=== PATIENT | male | born 1960 | race African-American/Black ===

== ENCOUNTER 2016-10-26 12:09 | Inpatient (IN) | payer OTHER ==
[2016-10-26 13:44] VITALS: BMI 33.4
[2016-10-26] MEDS ORDERED: PNEUMOC 13-VAL CONJ-DIP CRM/PF 0.5 ML DISP.SYRIN IM ONE (14:14)
--- NOTE | 2016-10-26 16:14 | HP ---
COWS - Scale Resting Pulse: 0= [place] 80 or Below Sweatin= Chills/Flushing Restless Observation: 0= Sits Still Pupil Size: 2= Moderately Dilated Bone or Joint Aches: 4=Acute Joint/Muscle Pain Runny Nose/ Eye Tearin= None GI Upset > 30mins: 1= Stomach Cramp Tremor Observation: 1= Tremor [place], Not Seen Yawning Observation: 1= 1-2x During Session Anxiety or Irritability: 2=Irritable/Anxious Goose Flesh Skin: 0=Smooth Skin COWS Score: 12 CIWA Score - CIWA Score Nausea/Vomitin-No Nausea/No Vomiting Muscle Tremors: 4-Moderate,w/Arms Extend Anxiety: 4-Mod. Anxious/Guarded Agitation: 4-Moderately Restless Paroxysmal Sweats: 1-Minimal Palms Moist Orientation: 0-Oriented Tacttile Disturbances: 3-Moderate Itch/Numb/Burn Auditory Disturbances: 0-None Visual Disturbances: 0-None Headache: 0-None Present CIWA-Ar Total Score: 16 Admission ROS S - HPI Chief Complaint: DETOX TX FOR HEROIN DEPENDENCE Allergies/Adverse Reactions: Allergies Allergy/AdvReac Type Severity Reaction Status Date / Time No Known Allergies Allergy Verified 10/26/16 13:57 History of Present Illness: 56 Y/O AA/MALE WITH A HX OF HEROIN DEPENDENCE SEEKING DETOX TX. Exam Limitations: No Limitations - Ebola screening Have you traveled outside of the country in the last 21 days: No Have you had contact with anyone from an Ebola affected area: No Have you been sick,other than usual withdrawal symptoms: No Do you have a fever: No - Review of Systems Constitutional: Chills, Loss of Appetite, Night Sweats, Changes in sleep EENT: reports: Blurred Vision, Tearing, Nose Congestion, Dental Problems ( MISSING TEETH) Respiratory: reports: No Symptoms reported Cardiac: reports: Lightheadedness GI: reports: Constipated, Diarrhea, Nausea, Poor Appetite, Poor Fluid Intake, Vomiting : reports: Dysuria Musculoskeletal: reports: Back Pain, Joint Pain, Muscle Pain Integumentary: reports: No Symptoms Reported Neuro: reports: Headache, Dizziness Endocrine: reports: No Symptoms Reported Hematology: reports: No Symptoms Reported Psychiatric: reports: Orientated x3 Other Systems: Reviewed and Negative Patient History - Patient Medical History Hx Anemia: No Hx Asthma: No Hx Chronic Obstructive Pulmonary Disease (COPD): No Hx Cardiac Disorders: No Hx Hypertension: Yes (ON/OFF- NO MED) Hx Hypercholesterolemia: Yes (ON/OFF-) HX Cerebrovascular Accident: No Hx Seizures: No Hx Diabetes: No Hx Gastrointestinal Disorders: Yes (ON/OFF PPIs-RANITIDINE) Hx Genitourinary Disorders: No Hx Sexually Transmitted Disorders: No (DENIES) Hx Renal Disease (ESRD): No Hx Thyroid Disease: No Hx Human Immunodeficiency Virus (HIV): No (NEGATIVE HX) Hx Hepatitis C: No Hx Depression: Yes (NEVER BEEN EVALUATED BUT WANT EVALUATION THIS ADMISSION.) Hx Suicide Attempt: No (DENIES) Hx Schizophrenia: No - Patient Surgical History Past Surgical History: No Hx Neurologic Surgery: No Hx Cataract Extraction: No Hx Cardiac Surgery: No Hx Lung Surgery: No Hx Breast Surgery: No Hx Breast Biopsy: No Hx Abdominal Surgery: No Hx Appendectomy: No Hx Cholecystectomy: No Hx Genitourinary Surgery: No Hx Orthopedic Surgery: No Anesthesia Reaction: No - PPD History Previous Implant?: Yes Documented Results: Negative w/o proof Implanted On Prior R Admission?: No PPD to be Administered?: Yes - Reproductive History Patient is a Female of Child Bearing Age (11 -55 yrs old): No (MALE) Patient : (N/A) - Smoking Cessation Smoking history: Current every day smoker Have you smoked in the past 12 months: Yes Aproximately how many cigarettes per day: 20 Hx Chewing Tobacco Use: No Initiated information on smoking cessation: Yes 'Breaking Loose' booklet given: 10/26/16 - Substance & Tx. History Hx Alcohol Use: Yes (COGNAC) Hx Substance Use: Yes (HEROIN) Substance Use Type: Alcohol, Heroin Hx Substance Use Treatment: Yes (LAST TX AT [facility] 3YRS AGO) - Substances Abused Heroin Route: Inhalation Frequency: Daily Amount used: 20 bags Age of first use: 17 Date of Last Use: 10/26/16 alcohol-cognac Route: Oral Frequency: 3-6 times per week Amount used: 1/2 pint Age of first use: 20 Date of Last Use: 10/25/16 Family Disease History - Family Disease History Family Disease History: Diabetes: Father (BLINDNESS DU TO DM-), Brother (AMPUTATION DUE TO DM), Other: Mother (ARTHRITIS) Admission Physical Exam [facility] - Vital Signs Vital Signs: Vital Signs - 24 hr 10/26/16 13:41 Temperature 97.3 F L Pulse Rate 76 Respiratory 18 Rate Blood Pressure 151/85 - Physical General Appearance: Yes: Moderate Distress, Irritable, Anxious HEENTM: Yes: EOMI, Normocephalic, KEV, Pharynx Normal Respiratory: Yes: Chest Non-Tender, Lungs Clear, Normal Breath Sounds, No Respiratory Distress Neck: Yes: Supple, Trachea in good position Breast: Yes: Breast Exam Deferred Cardiology: Yes: Regular Rhythm, Regular Rate, S1, S2 Abdominal: Yes: Normal Bowel Sounds, Non Tender, Soft Genitourinary: Yes: Other (N/) Musculoskeletal: Yes: full range of Motion, Gait Steady Extremities: Yes: Normal Range of Motion, Non-Tender, Swelling Neurological: Yes: instrumentation tech II-XII NML intact, Fully Oriented, Alert Integumentary: Yes: Dry, Warm Lymphatic: Yes: Within Normal Limits - Diagnostic (1) Opioid dependence with withdrawal Current Visit: Yes Status: Acute (2) Alcohol dependence with uncomplicated withdrawal Current Visit: Yes Status: Acute (3) Hypertension Current Visit: Yes Status: Chronic Qualifiers: Hypertension type: essential hypertension Qualified Code(s): I10 - Essential (primary) hypertension (4) Hypercholesterolemia Current Visit: Yes Status: Suspected (5) GERD (gastroesophageal reflux disease) Current Visit: Yes Status: Chronic Qualifiers: Esophagitis presence: without esophagitis Qualified Code(s): K21.9 - Gastro-esophageal reflux disease without esophagitis Cleared for Admission S - Detox or Rehab [facility] Level of Care: Medically Managed Detox Regimen/Protocol: Methadone S Breath Alcohol Content Breath Alcohol Content: 0 Urine Drug Screen - Results Drug Screen Negative: No Urine Drug Screen Results: OPI-Opiates
[2016-10-26] MEDS ORDERED: METHADONE HCL 10 MG TABLET (FOR DETOX USE ONLY) PO ONE ×2 (17:05→23:00)
[2016-10-26] MEDS ORDERED: NICOTINE POLACRILEX 2 MG GUM BC PRN (17:05)
[2016-10-26] MEDS ORDERED: MAGNESIUM HYDROX 2400MG/30ML ORAL SUSPENSION 30 ML CUP PO PRN (17:05)
[2016-10-26] MEDS ORDERED: IBUPROFEN 400 MG TABLET (FP) PO PRN (17:05)
[2016-10-26] MEDS ORDERED: diphenhydrAMINE HCL 50 MG CAPSULE PO PRN (17:05)
[2016-10-26] MEDS ORDERED: LOPERAMIDE HCL 2 MG CAPSULE PO PRN (17:05)
[2016-10-26] MEDS ORDERED: ACETAMINOPHEN 325 MG TABLET (FP) PO PRN (17:05)
[2016-10-26] MEDS ORDERED: guaiFENesin/D-METHORPHAN HB 10 ML UNIT-DOSE CUPS PO PRN (17:05)
[2016-10-26] MEDS ORDERED: P-EPHED 60MG/TRIPROLIDI 2.5MG TABLET PO PRN (17:05)
[2016-10-26] MEDS ORDERED: MAGNESIUM CITRATE 300 ML BOTTLE PO PRN (17:05)
[2016-10-26] MEDS ORDERED: MAG HYDROX/AL HYDROX/SIMETH 30 ML UNIT-DOSE CUP PO PRN (17:05)
[2016-10-26] MEDS ORDERED: MENTHOL/PHENOL 1 EACH UD MM PRN (17:05)
[2016-10-26] MEDS: chlordiazePOXIDE HCL 25 MG CAPSULE PO PRN (17:36)
[2016-10-26] MEDS: HYDROCHLOROTHIAZIDE 25 MG TABLET (FP) PO SCH (17:36)
[2016-10-26] MEDS: NICOTINE 21 MG/24 HOURS TOPICAL PATCH TD SCH (17:41)
--- NOTE | 2016-10-26 17:50 | CONSULT ---
[facility] Psychiatric Consult - Data Date of interview: 10/26/16 Admission source: [facility] Identifying data: First admission to [facility] for this 56 y/o AA male seeking detox treatment on for alcohol and heroin dependence.Patient is single, a father of two,domiciled,unemployed and supported on welfare. Substance Abuse History: Discussed with patient.Confirms [facility] report. Smoking Cessation. Smoking history: Current every day smoker. Have you smoked in the past 12 months: Yes. Aproximately how many cigarettes per day: 20. Hx Chewing Tobacco Use: No. Initiated information on smoking cessation: Yes. 'Breaking Loose' booklet given: 10/26/16. - Substance & Tx. History. Hx Alcohol Use: Yes (COGNAC). Hx Substance Use: Yes (HEROIN). Substance Use Type: Alcohol, Heroin. Hx Substance Use Treatment: Yes (LAST TX AT [facility] 3YRS AGO). - Substances Abused. Heroin. Route: Inhalation. Frequency: Daily. Amount used: 20 bags. Age of first use: 17. Date of Last Use: 10/26/16. alcohol- cognac. Route: Oral. Frequency: 3-6 times per week. Amount used: 1/2 pint. Age of first use: 20. Date of Last Use: 10/25/16 Medical History: GERD and Hypertension. Psychiatric History: Patient denies. Physical/Sexual Abuse/Trauma History: Patient denies. Additional Comment: Urine Drug Screen Results: OPI-Opiates.Noted. Mental Status Exam - Mental Status Exam Alert and Oriented to: Time, Place, Person Cognitive Function: Good Patient Appearance: Well Groomed Mood: Nervous, Anxious Affect: Mood Congruent Patient Behavior: Fatigued, Appropriate, Cooperative Speech Pattern: Clear Voice Loudness: Normal Thought Process: Goal Oriented Thought Disorder: Not Present Hallucinations: Denies Suicidal Ideation: Denies Homicidal Ideation: Denies Insight/Judgement: Poor Sleep: Well Appetite: Good Muscle strength/Tone: Normal Gait/Station: Normal Psychiatric Findings - Problem List ([place] 1, 2,3) (1) Alcohol dependence with uncomplicated withdrawal Current Visit: Yes Status: Acute (2) Opioid dependence with withdrawal Current Visit: Yes Status: Acute - Initial Treatment Plan Initial Treatment Plan: Psychoeducation.Detoxification.Observation.
[2016-10-26 21:05] LABS: URINE APPEARANCE CLEAR; URINE BILIRUBIN NEGATIVE (NEGATIVE); URINE BLOOD 1+ (NEGATIVE); URINE COLOR YELLOW; URINE GLUCOSE (UA) NEGATIVE (NEGATIVE); URINE KETONE NEGATIVE (NEGATIVE); URINE LEUK ESTERASE NEGATIVE (NEGATIVE); URINE NITRITE NEGATIVE (NEGATIVE); URINE PROTEIN NEGATIVE (NEGATIVE)
[2016-10-26 21:21] LABS: URINE HYALINE CAST 2 /lpf; URINE MUCUS MANY; URINE RBC 3 /hpf (0-3); URINE WBC 1 /hpf (3-5)
[2016-10-26] MEDS: chlordiazePOXIDE HCL 25 MG CAPSULE PO SCH (22:11)
[2016-10-26] MEDS: RANITIDINE HCL 150 MG TABLET (FP) PO SCH (22:11)
[2016-10-26] MEDS: THIAMINE HCL 100 MG TABLET (FP) PO SCH (22:11)
[2016-10-27] MEDS: chlordiazePOXIDE HCL 25 MG CAPSULE PO SCH ×4 (05:53→22:11)
[2016-10-27] MEDS ORDERED: METHADONE HCL 10 MG TABLET (FOR DETOX USE ONLY) PO SCH (10:00)
--- NOTE | 2016-10-27 10:04 | PN ---
[facility] CIWA - CIWA Score Nausea/Vomitin-No Nausea/No Vomiting Muscle Tremors: 4-Moderate,w/Arms Extend Anxiety: 4-Mod. Anxious/Guarded Agitation: 4-Moderately Restless Paroxysmal Sweats: 1-Minimal Palms Moist Orientation: 0-Oriented Tacttile Disturbances: 3-Moderate Itch/Numb/Burn Auditory Disturbances: 0-None Visual Disturbances: 0-None Headache: 0-None Present CIWA-Ar Total Score: 16 S COWS - Scale Resting Pulse: 0= [place] 80 or Below Sweatin= Chills/Flushing Restless Observation: 3= Extraneous Movement Pupil Size: 2= Moderately Dilated Bone or Joint Aches: 4=Acute Joint/Muscle Pain Runny Nose/ Eye Tearin= None GI Upset > 30mins: 0= None Tremor Observation of Outstretched Hands: 1= Tremor [place], Not Seen Yawning Observation: 1= 1-2x During Session Anxiety or Irritability: 1=Feels Anxious/Irritable Goose Flesh Skin: 0=Smooth Skin COWS Score: 13 [facility] Progress Note (SOAP) Subjective: ANXIETY,SWEATS,INTERMITTENT SLEEP. Objective: 10/27/16 10:02 Vital Signs Temperature 97.1 F L 10/27/16 09:27 Pulse Rate 76 10/27/16 09:27 Respiratory Rate 18 10/27/16 09:27 Blood Pressure 133/80 10/27/16 09:27 O2 Sat by Pulse Oximetry (%) Laboratory Last Values Urine Color Yellow 10/26/16 20:47 Urine Appearance Clear 10/26/16 20:47 Urine pH 5.0 (5.0-8.0) 10/26/16 20:47 Ur Specific [place] 1.020 (1.005-1.025) 10/26/16 20:47 Urine Protein Negative (NEGATIVE) 10/26/16 20:47 Urine Glucose (UA) Negative (NEGATIVE) 10/26/16 20:47 Urine Ketones Negative (NEGATIVE) 10/26/16 20:47 Urine Blood 1+ (NEGATIVE) H 10/26/16 20:47 Urine Nitrite Negative (NEGATIVE) 10/26/16 20:47 Urine Bilirubin Negative (NEGATIVE) 10/26/16 20:47 Urine Urobilinogen 2.0 mg/dL (0.2-1.0) 10/26/16 20:47 Ur Leukocyte Esterase Negative (NEGATIVE) 10/26/16 20:47 Urine RBC 3 /hpf (0-3) 10/26/16 20:47 Urine WBC 1 /hpf (3-5) 10/26/16 20:47 Ur Epithelial Cells Rare /hpf (FEW) 10/26/16 20:47 Hyaline Casts 2 /lpf 10/26/16 20:47 Urine Mucus Many 10/26/16 20:47 Assessment: 10/27/16 10:04 WITHDRAWAL SX Plan: CONTINUE DETOX
[2016-10-27] MEDS: HYDROCHLOROTHIAZIDE 25 MG TABLET (FP) PO SCH (10:05)
[2016-10-27] MEDS: RANITIDINE HCL 150 MG TABLET (FP) PO SCH ×2 (10:05→22:11)
[2016-10-27] MEDS: PRENATAL VITAMINS W/ FOLIC ACID TABLET (FP) PO SCH (10:05)
[2016-10-27] MEDS: NICOTINE 21 MG/24 HOURS TOPICAL PATCH TD SCH (10:06)
[2016-10-27 10:14] LABS: ALBUMIN 3.4 g/dl (3.4-5.0); ANION GAP 7 (8-16); CALCIUM 9.1 mg/dL (8.5-10.1); CO2 31 mmol/L (21-32); GLUCOSE,RANDOM 98 mg/dL (74-106)
[2016-10-27 10:15] LABS: MEAN CELL VOLUME 94.1 fl (80-96); MEAN PLT VOLUME 7.4 fl (7.5-11.1); PLATELET COUNT 356 K/MM3 (134-434); RDW 13.7 % (11.9-15.9); WHITE BLOOD COUNT 5.3 K/mm3 (4.0-10.0)
[2016-10-27 10:18] LABS: ALK PHOS 68 U/L (45-117); BILIRUBIN,TOTAL 0.8 mg/dL (0.2-1.0); CREATININE 1.2 mg/dL (0.7-1.3); SGOT/AST 9 U/L (15-37); SGPT/ALT 15 U/L (12-78); TOT PROT 6.5 g/dl (6.4-8.2)
[2016-10-27] MEDS ORDERED: PNEUMOCOCCAL 23 VACCINE 0.5 ML VIAL IM ONE (12:00)
[2016-10-27] MEDS: chlordiazePOXIDE HCL 25 MG CAPSULE PO PRN (15:19)
[2016-10-27] MEDS: THIAMINE HCL 100 MG TABLET (FP) PO SCH (22:11)
[2016-10-28] MEDS: chlordiazePOXIDE HCL 25 MG CAPSULE PO SCH ×3 (05:41→17:18)
[2016-10-28] MEDS ORDERED: CYCLOBENZAPRINE HCL 10 MG TABLET (FP) PO PRN (07:26)
[2016-10-28] MEDS: METHADONE HCL 5 MG TABLET (FOR DETOX USE ONLY) PO SCH (10:07)
[2016-10-28] MEDS: HYDROCHLOROTHIAZIDE 25 MG TABLET (FP) PO SCH (10:07)
[2016-10-28] MEDS: PRENATAL VITAMINS W/ FOLIC ACID TABLET (FP) PO SCH (10:07)
[2016-10-28] MEDS: RANITIDINE HCL 150 MG TABLET (FP) PO SCH ×2 (10:07→22:06)
[2016-10-28] MEDS: NICOTINE 21 MG/24 HOURS TOPICAL PATCH TD SCH (10:07)
--- NOTE | 2016-10-28 10:40 | PN ---
[facility] CIWA - CIWA Score Nausea/Vomitin-No Nausea/No Vomiting Muscle Tremors: 4-Moderate,w/Arms Extend Anxiety: 4-Mod. Anxious/Guarded Agitation: 4-Moderately Restless Paroxysmal Sweats: 1-Minimal Palms Moist Orientation: 0-Oriented Tacttile Disturbances: 3-Moderate Itch/Numb/Burn Auditory Disturbances: 0-None Visual Disturbances: 0-None Headache: 0-None Present CIWA-Ar Total Score: 16 [facility] COWS - Scale Resting Pulse: 1= [place] 81-100 Sweatin= Chills/Flushing Restless Observation: 3= Extraneous Movement Pupil Size: 0= Normal to Room Light Bone or Joint Aches: 4=Acute Joint/Muscle Pain Runny Nose/ Eye Tearin= Nasal Congestion GI Upset > 30mins: 1= Stomach Cramp Tremor Observation of Outstretched Hands: 1= Tremor [place], Not Seen Yawning Observation: 1= 1-2x During Session Anxiety or Irritability: 2=Irritable/Anxious Goose Flesh Skin: 0=Smooth Skin COWS Score: 15 [facility] Progress Note (SOAP) Subjective: ANXIETY,IRRITABILITY, SWEATS,BACK ACHE, HOT/COLD FLASHES, INTERMITTENT SLEEP. Objective: 10/28/16 10:39 Vital Signs Temperature 97.0 F L 10/28/16 10:10 Pulse Rate 94 H 10/28/16 10:10 Respiratory Rate 20 10/28/16 10:10 Blood Pressure 156/93 10/28/16 10:10 O2 Sat by Pulse Oximetry (%) Laboratory Last Values WBC 5.3 K/mm3 (4.0-10.0) 10/27/16 07:00 RBC 4.05 M/mm3 (4.00-5.60) 10/27/16 07:00 Hgb 12.6 GM/dL (11.7-16.9) 10/27/16 07:00 Hct 38.1 % (35.4-49) 10/27/16 07:00 MCV 94.1 fl (80-96) 10/27/16 07:00 MCH 31.0 pg (25.7-33.7) 10/27/16 07:00 MCHC 33.0 g/dl (32.0-35.9) 10/27/16 07:00 RDW 13.7 % (11.9-15.9) 10/27/16 07:00 Plt Count 356 K/MM3 (134-434) 10/27/16 07:00 MPV 7.4 fl (7.5-11.1) L 10/27/16 07:00 Sodium 139 mmol/L (136-145) 10/27/16 07:00 Potassium 4.4 mmol/L (3.5-5.1) 10/27/16 07:00 Chloride 101 mmol/L (98-107) 10/27/16 07:00 Carbon Dioxide 31 mmol/L (21-32) 10/27/16 07:00 Anion Gap 7 (8-16) L 10/27/16 07:00 BUN 12 mg/dL (7-18) 10/27/16 07:00 Creatinine 1.2 mg/dL (0.7-1.3) 10/27/16 07:00 Creat Clearance w eGFR > 60 (>60) 10/27/16 07:00 Random Glucose 98 mg/dL (74-106) 10/27/16 07:00 Calcium 9.1 mg/dL (8.5-10.1) 10/27/16 07:00 Total Bilirubin 0.8 mg/dL (0.2-1.0) 10/27/16 07:00 AST 9 U/L (15-37) L 10/27/16 07:00 ALT 15 U/L (12-78) 10/27/16 07:00 Alkaline Phosphatase 68 U/L (45-117) 10/27/16 07:00 Total Protein 6.5 g/dl (6.4-8.2) 10/27/16 07:00 Albumin 3.4 g/dl (3.4-5.0) 10/27/16 07:00 Urine Color Yellow 10/26/16 20:47 Urine Appearance Clear 10/26/16 20:47 Urine pH 5.0 (5.0-8.0) 10/26/16 20:47 Ur Specific [place] 1.020 (1.005-1.025) 10/26/16 20:47 Urine Protein Negative (NEGATIVE) 10/26/16 20:47 Urine Glucose (UA) Negative (NEGATIVE) 10/26/16 20:47 Urine Ketones Negative (NEGATIVE) 10/26/16 20:47 Urine Blood 1+ (NEGATIVE) H 10/26/16 20:47 Urine Nitrite Negative (NEGATIVE) 10/26/16 20:47 Urine Bilirubin Negative (NEGATIVE) 10/26/16 20:47 Urine Urobilinogen 2.0 mg/dL (0.2-1.0) 10/26/16 20:47 Ur Leukocyte Esterase Negative (NEGATIVE) 10/26/16 20:47 Urine RBC 3 /hpf (0-3) 10/26/16 20:47 Urine WBC 1 /hpf (3-5) 10/26/16 20:47 Ur Epithelial Cells Rare /hpf (FEW) 10/26/16 20:47 Hyaline Casts 2 /lpf 10/26/16 20:47 Urine Mucus Many 10/26/16 20:47 RPR Titer Nonreactive (NONREACTIVE) 10/27/16 07:00 Assessment: 10/28/16 10:40 WITHDRAWAL SX Plan: CONTINUE DETOX
[2016-10-28] MEDS: LIDOCAINE 5% TOPICAL PATCH TP SCH (12:20)
[2016-10-28] MEDS: CYCLOBENZAPRINE HCL 10 MG TABLET (FP) PO SCH ×2 (13:36→22:07)
[2016-10-28] MEDS: THIAMINE HCL 100 MG TABLET (FP) PO SCH (22:06)
[2016-10-28] MEDS: cloNIDine HCL 0.1 MG TABLET PO SCH (22:06)
[2016-10-28] MEDS: LIDOCAINE PATCH REMOVAL MC SCH (22:07)
[2016-10-28] MEDS: chlordiazePOXIDE 5 MG CAPSULE PO SCH (22:07)
[2016-10-29] MEDS: CYCLOBENZAPRINE HCL 10 MG TABLET (FP) PO SCH ×3 (05:57→22:05)
[2016-10-29] MEDS: chlordiazePOXIDE 5 MG CAPSULE PO SCH ×3 (05:58→17:07)
[2016-10-29] MEDS: RANITIDINE HCL 150 MG TABLET (FP) PO SCH ×2 (10:07→22:05)
[2016-10-29] MEDS: PRENATAL VITAMINS W/ FOLIC ACID TABLET (FP) PO SCH (10:07)
[2016-10-29] MEDS: METHADONE HCL 5 MG TABLET (FOR DETOX USE ONLY) PO SCH (10:07)
[2016-10-29] MEDS: cloNIDine HCL 0.1 MG TABLET PO SCH ×2 (10:07→22:05)
[2016-10-29] MEDS: HYDROCHLOROTHIAZIDE 25 MG TABLET (FP) PO SCH (10:07)
[2016-10-29] MEDS: NICOTINE 21 MG/24 HOURS TOPICAL PATCH TD SCH (10:08)
[2016-10-29] MEDS: LIDOCAINE 5% TOPICAL PATCH TP SCH (10:08)
--- NOTE | 2016-10-29 10:31 | PN ---
S Progress Note (SOAP) Subjective: DECREASED ANXIETY,IRRITABILITY,TREMORS. Objective: 10/29/16 10:30 Vital Signs Temperature 97.7 F 10/29/16 09:22 Pulse Rate 79 10/29/16 09:22 Respiratory Rate 18 10/29/16 09:22 Blood Pressure 115/77 10/29/16 09:22 O2 Sat by Pulse Oximetry (%) Laboratory Last Values WBC 5.3 K/mm3 (4.0-10.0) 10/27/16 07:00 RBC 4.05 M/mm3 (4.00-5.60) 10/27/16 07:00 Hgb 12.6 GM/dL (11.7-16.9) 10/27/16 07:00 Hct 38.1 % (35.4-49) 10/27/16 07:00 MCV 94.1 fl (80-96) 10/27/16 07:00 MCH 31.0 pg (25.7-33.7) 10/27/16 07:00 MCHC 33.0 g/dl (32.0-35.9) 10/27/16 07:00 RDW 13.7 % (11.9-15.9) 10/27/16 07:00 Plt Count 356 K/MM3 (134-434) 10/27/16 07:00 MPV 7.4 fl (7.5-11.1) L 10/27/16 07:00 Sodium 139 mmol/L (136-145) 10/27/16 07:00 Potassium 4.4 mmol/L (3.5-5.1) 10/27/16 07:00 Chloride 101 mmol/L (98-107) 10/27/16 07:00 Carbon Dioxide 31 mmol/L (21-32) 10/27/16 07:00 Anion Gap 7 (8-16) L 10/27/16 07:00 BUN 12 mg/dL (7-18) 10/27/16 07:00 Creatinine 1.2 mg/dL (0.7-1.3) 10/27/16 07:00 Creat Clearance w eGFR > 60 (>60) 10/27/16 07:00 Random Glucose 98 mg/dL (74-106) 10/27/16 07:00 Calcium 9.1 mg/dL (8.5-10.1) 10/27/16 07:00 Total Bilirubin 0.8 mg/dL (0.2-1.0) 10/27/16 07:00 AST 9 U/L (15-37) L 10/27/16 07:00 ALT 15 U/L (12-78) 10/27/16 07:00 Alkaline Phosphatase 68 U/L (45-117) 10/27/16 07:00 Total Protein 6.5 g/dl (6.4-8.2) 10/27/16 07:00 Albumin 3.4 g/dl (3.4-5.0) 10/27/16 07:00 Urine Color Yellow 10/26/16 20:47 Urine Appearance Clear 10/26/16 20:47 Urine pH 5.0 (5.0-8.0) 10/26/16 20:47 Ur Specific [place] 1.020 (1.005-1.025) 10/26/16 20:47 Urine Protein Negative (NEGATIVE) 10/26/16 20:47 Urine Glucose (UA) Negative (NEGATIVE) 10/26/16 20:47 Urine Ketones Negative (NEGATIVE) 10/26/16 20:47 Urine Blood 1+ (NEGATIVE) H 10/26/16 20:47 Urine Nitrite Negative (NEGATIVE) 10/26/16 20:47 Urine Bilirubin Negative (NEGATIVE) 10/26/16 20:47 Urine Urobilinogen 2.0 mg/dL (0.2-1.0) 10/26/16 20:47 Ur Leukocyte Esterase Negative (NEGATIVE) 10/26/16 20:47 Urine RBC 3 /hpf (0-3) 10/26/16 20:47 Urine WBC 1 /hpf (3-5) 10/26/16 20:47 Ur Epithelial Cells Rare /hpf (FEW) 10/26/16 20:47 Hyaline Casts 2 /lpf 10/26/16 20:47 Urine Mucus Many 10/26/16 20:47 RPR Titer Nonreactive (NONREACTIVE) 10/27/16 07:00 Assessment: 10/29/16 10:31 WITHDRAWAL SX Plan: CONTINUE DETOX
--- NOTE | 2016-10-29 11:38 | EKG ---
Test Reason : Blood Pressure : / mmHG Vent. Rate : 084 BPM Atrial Rate : 084 BPM P-R Int : 146 ms QRS Dur : 090 ms QT Int : 360 ms P-R-T Axes : 058 040 048 degrees QTc Int : 425 ms NORMAL SINUS RHYTHM POSSIBLE LEFT ATRIAL ENLARGEMENT BORDERLINE ECG NO PREVIOUS ECGS AVAILABLE Confirmed by IRASEMA PETTIT, KM ([id number]) on 10/29/2016 11:38:00 AM Referred By: Confirmed By:KM VILLALPANDO MD
[2016-10-29] MEDS ORDERED: PNEUMOCOCCAL 23 VACCINE 0.5 ML VIAL IM ONE (12:00)
[2016-10-29] MEDS ORDERED: PNEUMOC 13-VAL CONJ-DIP CRM/PF 0.5 ML DISP.SYRIN IM ONE (12:00)
[2016-10-29] MEDS: THIAMINE HCL 100 MG TABLET (FP) PO SCH (22:05)
[2016-10-29] MEDS: chlordiazePOXIDE HCL 10 MG CAPSULE PO SCH (22:05)
[2016-10-29] MEDS: LIDOCAINE PATCH REMOVAL MC SCH (22:06)
[2016-10-30] MEDS: CYCLOBENZAPRINE HCL 10 MG TABLET (FP) PO SCH ×3 (05:22→22:12)
[2016-10-30] MEDS: chlordiazePOXIDE HCL 10 MG CAPSULE PO SCH ×3 (05:22→17:28)
[2016-10-30] MEDS ORDERED: METHADONE HCL 10 MG TABLET (FOR DETOX USE ONLY) PO SCH (10:00)
[2016-10-30] MEDS: cloNIDine HCL 0.1 MG TABLET PO SCH ×2 (10:11→22:12)
[2016-10-30] MEDS: RANITIDINE HCL 150 MG TABLET (FP) PO SCH ×2 (10:11→22:12)
[2016-10-30] MEDS: HYDROCHLOROTHIAZIDE 25 MG TABLET (FP) PO SCH (10:11)
[2016-10-30] MEDS: LIDOCAINE 5% TOPICAL PATCH TP SCH (10:12)
[2016-10-30] MEDS: NICOTINE 21 MG/24 HOURS TOPICAL PATCH TD SCH (10:12)
[2016-10-30] MEDS: PRENATAL VITAMINS W/ FOLIC ACID TABLET (FP) PO SCH (10:12)
--- NOTE | 2016-10-30 10:31 | PN ---
S Progress Note (SOAP) Subjective: DECREASED ANXIETY,SWEATS,IRRITABILITY. Objective: 10/30/16 10:29 Vital Signs Temperature 96.7 F L 10/30/16 06:38 Pulse Rate 85 10/30/16 09:46 Respiratory Rate 18 10/30/16 09:46 Blood Pressure 108/69 10/30/16 09:46 O2 Sat by Pulse Oximetry (%) Laboratory Last Values WBC 5.3 K/mm3 (4.0-10.0) 10/27/16 07:00 RBC 4.05 M/mm3 (4.00-5.60) 10/27/16 07:00 Hgb 12.6 GM/dL (11.7-16.9) 10/27/16 07:00 Hct 38.1 % (35.4-49) 10/27/16 07:00 MCV 94.1 fl (80-96) 10/27/16 07:00 MCH 31.0 pg (25.7-33.7) 10/27/16 07:00 MCHC 33.0 g/dl (32.0-35.9) 10/27/16 07:00 RDW 13.7 % (11.9-15.9) 10/27/16 07:00 Plt Count 356 K/MM3 (134-434) 10/27/16 07:00 MPV 7.4 fl (7.5-11.1) L 10/27/16 07:00 Sodium 139 mmol/L (136-145) 10/27/16 07:00 Potassium 4.4 mmol/L (3.5-5.1) 10/27/16 07:00 Chloride 101 mmol/L (98-107) 10/27/16 07:00 Carbon Dioxide 31 mmol/L (21-32) 10/27/16 07:00 Anion Gap 7 (8-16) L 10/27/16 07:00 BUN 12 mg/dL (7-18) 10/27/16 07:00 Creatinine 1.2 mg/dL (0.7-1.3) 10/27/16 07:00 Creat Clearance w eGFR > 60 (>60) 10/27/16 07:00 Random Glucose 98 mg/dL (74-106) 10/27/16 07:00 Calcium 9.1 mg/dL (8.5-10.1) 10/27/16 07:00 Total Bilirubin 0.8 mg/dL (0.2-1.0) 10/27/16 07:00 AST 9 U/L (15-37) L 10/27/16 07:00 ALT 15 U/L (12-78) 10/27/16 07:00 Alkaline Phosphatase 68 U/L (45-117) 10/27/16 07:00 Total Protein 6.5 g/dl (6.4-8.2) 10/27/16 07:00 Albumin 3.4 g/dl (3.4-5.0) 10/27/16 07:00 Urine Color Yellow 10/26/16 20:47 Urine Appearance Clear 10/26/16 20:47 Urine pH 5.0 (5.0-8.0) 10/26/16 20:47 Ur Specific [place] 1.020 (1.005-1.025) 10/26/16 20:47 Urine Protein Negative (NEGATIVE) 10/26/16 20:47 Urine Glucose (UA) Negative (NEGATIVE) 10/26/16 20:47 Urine Ketones Negative (NEGATIVE) 10/26/16 20:47 Urine Blood 1+ (NEGATIVE) H 10/26/16 20:47 Urine Nitrite Negative (NEGATIVE) 10/26/16 20:47 Urine Bilirubin Negative (NEGATIVE) 10/26/16 20:47 Urine Urobilinogen 2.0 mg/dL (0.2-1.0) 10/26/16 20:47 Ur Leukocyte Esterase Negative (NEGATIVE) 10/26/16 20:47 Urine RBC 3 /hpf (0-3) 10/26/16 20:47 Urine WBC 1 /hpf (3-5) 10/26/16 20:47 Ur Epithelial Cells Rare /hpf (FEW) 10/26/16 20:47 Hyaline Casts 2 /lpf 10/26/16 20:47 Urine Mucus Many 10/26/16 20:47 RPR Titer Nonreactive (NONREACTIVE) 10/27/16 07:00 Assessment: 10/30/16 10:29 WITHDRAWAL SX Plan: CONTINUE DETOX
[2016-10-30] MEDS: LIDOCAINE PATCH REMOVAL MC SCH (22:12)
[2016-10-30] MEDS: THIAMINE HCL 100 MG TABLET (FP) PO SCH (22:12)
[2016-10-31] MEDS: CYCLOBENZAPRINE HCL 10 MG TABLET (FP) PO SCH (05:30)
[2016-10-31] MEDS ORDERED: METHADONE HCL 5 MG TABLET (FOR DETOX USE ONLY) PO SCH (06:00)
[2016-10-31] MEDS: cloNIDine HCL 0.1 MG TABLET PO SCH (10:15)
[2016-10-31] MEDS: HYDROCHLOROTHIAZIDE 25 MG TABLET (FP) PO SCH (10:15)
[2016-10-31] MEDS: RANITIDINE HCL 150 MG TABLET (FP) PO SCH (10:15)
[2016-10-31] MEDS: LIDOCAINE 5% TOPICAL PATCH TP SCH (10:16)
[2016-10-31] MEDS: PRENATAL VITAMINS W/ FOLIC ACID TABLET (FP) PO SCH (10:16)
[2016-10-31] MEDS: NICOTINE 21 MG/24 HOURS TOPICAL PATCH TD SCH (10:16)
[2016-10-31 10:43] VITALS: BP 121/81; PULSE 96; TEMP 96.9
--- NOTE | 2016-10-31 15:50 | HP ---
GURPREET PETTIT Rehab Assess/Revision - Admission History Admitted to Rehab from: [facility] - Vital signs Vital Signs: Vital Signs Period Temp Pulse Resp BP Sys/Iyer Pulse Ox Last 24 Hr 96.4 F-97.4 F 61-96 18-18 111-126/72-86 - Findings Detox History & Physical reviewed: Yes Concur with findings: Yes Comments/Additional Findings: PRIOR TO DISCHARGE FROM DETOX UNIT WITH SUBSEQUENT ADMISSION TO REHAB UNIT, PATIENT'S MEDICAL / MEDICATION HISTORY REVIEWED. PATIENT DISCHARGED FROM DETOX UNIT IN STABLE MEDICAL CONDITION.
--- NOTE | 2016-10-31 15:53 | DS ---
[facility] Detox Discharge Summary Admission Date: 10/26/16 Discharge Date: 10/31/16 - History Present History: Alcohol Dependence, Opioid Dependence Additional Comments: PATIENT GOING TO [facility]. PATIENT ADVISED TO FOLLOW-UP THERE PER DISCHARGE ARRANGEMENT. PATIENT DISCHARGED FROM DETOX UNIT IN STABLE MEDICAL CONDITION. Pertinent Past History: GERD, HTN, Hypercholesterolemia. - Physical Exam Results Vital Signs: Vital Signs Temperature 96.9 F L 10/31/16 10:43 Pulse Rate 96 H 10/31/16 10:43 Respiratory Rate 18 10/31/16 10:43 Blood Pressure 121/81 10/31/16 10:43 O2 Sat by Pulse Oximetry (%) Pertinent Admission Physical Exam Findings: WITHDRAWAL SYMPTOMS. Laboratory Tests 10/26/16 10/27/16 10/27/16 20:47 07:00 07:00 WBC 5.3 RBC 4.05 Hgb 12.6 Hct 38.1 MCV 94.1 MCH 31.0 MCHC 33.0 RDW 13.7 Plt Count 356 MPV 7.4 L Sodium 139 Potassium 4.4 Chloride 101 Carbon Dioxide 31 Anion Gap 7 L BUN 12 Creatinine 1.2 Creat Clearance w eGFR > 60 Random Glucose 98 Calcium 9.1 Total Bilirubin 0.8 AST 9 L ALT 15 Alkaline Phosphatase 68 Total Protein 6.5 Albumin 3.4 Urine Color Yellow Urine Appearance Clear Urine pH 5.0 Ur Specific [place] 1.020 Urine Protein Negative Urine Glucose (UA) Negative Urine Ketones Negative Urine Blood 1+ H Urine Nitrite Negative Urine Bilirubin Negative Urine Urobilinogen 2.0 Ur Leukocyte Esterase Negative Urine RBC 3 Urine WBC 1 Ur Epithelial Cells Rare Hyaline Casts 2 Urine Mucus Many RPR Titer 10/27/16 07:00 WBC RBC Hgb Hct MCV MCH MCHC RDW Plt Count MPV Sodium Potassium Chloride Carbon Dioxide Anion Gap BUN Creatinine Creat Clearance w eGFR Random Glucose Calcium Total Bilirubin AST ALT Alkaline Phosphatase Total Protein Albumin Urine Color Urine Appearance Urine pH Ur Specific [place] Urine Protein Urine Glucose (UA) Urine Ketones Urine Blood Urine Nitrite Urine Bilirubin Urine Urobilinogen Ur Leukocyte Esterase Urine RBC Urine WBC Ur Epithelial Cells Hyaline Casts Urine Mucus RPR Titer Nonreactive LABS NOTED. - Treatment Hospital Course: Detox Protocol Followed, Detoxed Safely, Responded well, Discharged Condition Good, Rehab Referral Accepted Patient [facility] - Medication Discharge Medications: Ambulatory Orders Ranitidine [Zantac -] 150 mg PO BID 10/26/16 - Diagnosis (1) Alcohol dependence with uncomplicated withdrawal Status: Acute (2) Opioid dependence with withdrawal Status: Acute (3) GERD (gastroesophageal reflux disease) Status: Chronic Qualifiers: Esophagitis presence: without esophagitis Qualified Code(s): K21.9 - Gastro-esophageal reflux disease without esophagitis (4) Hypertension Status: Chronic Qualifiers: Hypertension type: essential hypertension Qualified Code(s): I10 - Essential (primary) hypertension (5) Hypercholesterolemia Status: Suspected - AMA Did Patient Leave Against Medical Advice: No
== END 2016-10-31 12:54 | disposition other institution (70) | DRG 773 ==
LOC: YASAS 12:09 → Y3N 15:14
PROVIDERS: ADMIT Internal Medicine Addiction Medicine; ATTEND Internal Medicine Addiction Medicine
PROC: HZ2ZZZZ Detoxification Services for Substance Abuse Treatment (ICD-10-PCS; principal; 2016-10-26)
DX: F11.23 Opioid dependence with withdrawal (principal); F10.230 Alcohol dependence with withdrawal, uncomplicated; F17.210 Nicotine dependence, cigarettes, uncomplicated; K21.9 Gastro-esophageal reflux disease without esophagitis; I10 Essential (primary) hypertension; E78.00 Pure hypercholesterolemia, unspecified
CPT/HCPCS: 36415; 80053; 81003; 81015; 85027; 86593; 93005; 93010

== ENCOUNTER 2016-10-31 13:10 | Inpatient (IN) | payer OTHER ==
[2016-10-31] MEDS ORDERED: MENTHOL/PHENOL 1 EACH UD MM PRN (18:28)
[2016-10-31] MEDS ORDERED: guaiFENesin/D-METHORPHAN HB 10 ML UNIT-DOSE CUPS PO PRN (18:28)
[2016-10-31] MEDS ORDERED: IBUPROFEN 400 MG TABLET (FP) PO PRN (18:28)
[2016-10-31] MEDS ORDERED: diphenhydrAMINE HCL 50 MG CAPSULE PO PRN (18:28)
[2016-10-31] MEDS ORDERED: P-EPHED 60MG/TRIPROLIDI 2.5MG TABLET PO PRN (18:28)
[2016-10-31] MEDS ORDERED: MAGNESIUM HYDROX 2400MG/30ML ORAL SUSPENSION 30 ML CUP PO PRN (18:28)
[2016-10-31] MEDS ORDERED: MAG HYDROX/AL HYDROX/SIMETH 30 ML UNIT-DOSE CUP PO PRN (18:28)
[2016-10-31] MEDS ORDERED: ACETAMINOPHEN 325 MG TABLET (FP) PO PRN (18:28)
[2016-10-31] MEDS ORDERED: hydrOXYzine PAMOATE 50 MG CAPSULE (FP) PO PRN (18:28)
[2016-10-31] MEDS ORDERED: MAGNESIUM CITRATE 300 ML BOTTLE PO PRN (18:28)
[2016-10-31] MEDS ORDERED: NICOTINE POLACRILEX 2 MG GUM BUC PRN (18:28)
[2016-10-31] MEDS ORDERED: LOPERAMIDE HCL 2 MG CAPSULE PO PRN (18:28)
[2016-10-31] MEDS: RANITIDINE HCL 150 MG TABLET (FP) PO SCH (21:28)
[2016-10-31] MEDS ORDERED: THIAMINE HCL 100 MG TABLET (FP) PO SCH (22:00)
[2016-11-01 07:01] VITALS: BP 110/80; PULSE 64; TEMP 97.8
[2016-11-01] MEDS ORDERED: PRENATAL VITAMINS W/ FOLIC ACID TABLET (FP) PO SCH (10:00)
[2016-11-01] MEDS ORDERED: NICOTINE 14 MG/24 HOURS TOPICAL PATCH TD SCH (10:00)
[2016-11-01] MEDS: RANITIDINE HCL 150 MG TABLET (FP) PO SCH (10:28)
--- NOTE | 2016-11-01 13:18 | PN ---
[facility] Progress Note Note: was informed this am that patient sighed AMA
== END 2016-11-01 11:30 | disposition left against medical advice (07) | DRG 770 ==
LOC: YASAS 13:10 → Y5N 13:11
PROVIDERS: ADMIT Psychiatry & Neurology Psychiatry; ATTEND Psychiatry & Neurology Psychiatry
PROC: HZ42ZZZ Group Counseling for Substance Abuse Treatment, Cognitive-Behavioral (ICD-10-PCS; principal; 2016-10-31)
DX: F11.20 Opioid dependence, uncomplicated (principal); F10.20 Alcohol dependence, uncomplicated; F17.210 Nicotine dependence, cigarettes, uncomplicated; K21.9 Gastro-esophageal reflux disease without esophagitis; I10 Essential (primary) hypertension; E78.00 Pure hypercholesterolemia, unspecified

== ENCOUNTER 2019-02-02 10:12 | Inpatient (IN) | payer OTHER ==
[2019-02-02 10:50] VITALS: BMI 38.9
--- NOTE | 2019-02-02 11:49 | HP ---
"COWS - Scale Resting Pulse: 1= [place] 81-100 Sweatin= No chills or Flushing Restless Observation: 1= Difficult to Sit Still Pupil Size: 0= Normal to Room Light Bone or Joint Aches: 1= Mild Discomfort Runny Nose/ Eye Tearin= None GI Upset > 30mins: 2= Nausea/Diarrhea Tremor Observation: 0= None Yawning Observation: 0= None Anxiety or Irritability: 1=Feels Anxious/Irritable Goose Flesh Skin: 0=Smooth Skin COWS Score: 6 CIWA Score - Admission Criteria OASAS Guidelines: Admission for Medically Managed Detox: Requires at least one of the followin. CIWA greater than 12 2. Seizures within the past 24 hours 3. Delirium tremens within the past 24 hours 4. Hallucinations within the past 24 hours 5. Acute intervention needed for co occurring medical disorder 6. Acute intervention needed for co occurring psychiatric disorder 7. Severe withdrawal that cannot be handled at a lower level of care (continued vomiting, continued diarrhea, abnormal vital signs) requiring intravenous medication and/or fluids 8. Admitting History and Physical - Smoking History Smoking history: Current every day smoker Have you smoked in the past 12 months: Yes Aproximately how many cigarettes per day: 20 - Alcohol/Substance Use Hx Alcohol Use: Yes (COGNAC) Admission ROS [facility] Allergies/Adverse Reactions: Allergies Allergy/AdvReac Type Severity Reaction Status Date / Time No Known Allergies Allergy Verified 02/02/19 13:22 History of Present Illness: pt here requesting detox from opiate use , reports 10 bags /day via inhalation , denies IV use , latest use this morning , denies symptoms at this time . PMHX : DM, HTN , non- compliant w /meds , LLE swelling and open wound x 2 weeks states went to [facility] given ABx , unsure about wound care , states swelling persists denies SI / HI On exam LLE w/ posterior calf open wound w/ granulation , other superficial areas of weeping edema , Dajuan LE 3 + edema. Search Terms: bryon deal, 1960 Search Date: 02/02/2019 11:29:45 AM The Drug Utilization Report below displays all of the controlled substance prescriptions, if any, that your patient has filled in the last twelve months. The information displayed on this report is compiled from pharmacy submissions to the Department, and accurately reflects the information as submitted by the pharmacies. This report was requested by: Khadra Chadwick | Reference #: [id number] There are no results for the search terms that you entered. Exam Limitations: No Limitations - Ebola screening Have you traveled outside of the country in the last 21 days: No Have you had contact with anyone from an Ebola affected area: No Do you have a fever: No - Review of Systems Constitutional: No Symptoms Reported EENT: reports: No Symptoms Reported Respiratory: reports: No Symptoms reported Cardiac: reports: No Symptoms Reported Integumentary: reports: See HPI, Other (left leg wound) Endocrine: reports: See HPI Psychiatric: reports: Orientated x3 Patient History - Patient Medical History Hx Anemia: No Hx Asthma: No Hx Chronic Obstructive Pulmonary Disease (COPD): No Hx Cardiac Disorders: No Hx Hypercholesterolemia: Yes (ON/OFF-) HX Cerebrovascular Accident: No Hx Seizures: No Hx Gastrointestinal Disorders: No Hx Genitourinary Disorders: No Hx Sexually Transmitted Disorders: No Hx Renal Disease (ESRD): No Hx Thyroid Disease: No Hx Human Immunodeficiency Virus (HIV): No (NEGATIVE HX) Hx Hepatitis C: No Hx Depression: Yes Hx Suicide Attempt: No Hx Schizophrenia: No - Patient Surgical History Past Surgical History: No Hx Neurologic Surgery: No Hx Cataract Extraction: No Hx Cardiac Surgery: No Hx Lung Surgery: No Hx Breast Surgery: No Hx Breast Biopsy: No Hx Abdominal Surgery: No Hx Appendectomy: No Hx Cholecystectomy: No Hx Genitourinary Surgery: No Hx Section: (N/A) Hx Orthopedic Surgery: No Anesthesia Reaction: No - PPD History Date: 10/28/16 Results: 0mm - Smoking Cessation Smoking history: Current every day smoker Have you smoked in the past 12 months: Yes Aproximately how many cigarettes per day: 20 Cigars Per Day: 0 Hx Chewing Tobacco Use: No Initiated information on smoking cessation: Yes 'Breaking Loose' booklet given: 02/02/19 - Substances abused Heroin Substance route: Inhalation Frequency: Daily Amount used: 2 BUNDLES Age of first use: 17 Date of last use: 02/02/19 Alcohol Substance route: Oral Frequency: 1-3 times last 30 days Amount used: 2 SHOTS OF NITA 01/26/2019 Age of first use: 23 Date of last use: 01/26/19 Admission Physical Exam BHS - Vital Signs Vital Signs: Vital Signs - 24 hr 02/02/19 10:46 Temperature 97.2 F L Pulse Rate 89 Respiratory 18 Rate Blood Pressure 124/83 Breathalyzer - Breathalyzer Breathalyzer: 0 Urine Drug Screen - Test Device Lot number: [id number] Expiration date: 09/28/20 - Control Is test valid?: Yes - Results Drug screen NEGATIVE: No Urine drug screen results: THEE-Cocaine, MOP-Opiates, OXY-Oxycodone Inpatient Rehab Admission - Rehab Decision to Admit Inpatient rehab admission?: No"
[2019-02-02] MEDS ORDERED: MAGNESIUM CITRATE 300 ML BOTTLE PO PRN (16:40)
[2019-02-02] MEDS ORDERED: METHOCARBAMOL 500 MG TABLET PO PRN (16:40)
[2019-02-02] MEDS ORDERED: MENTHOL/PHENOL 1 EACH UD MM PRN (16:40)
[2019-02-02] MEDS ORDERED: MAGNESIUM HYDROX 2400MG/30ML ORAL SUSPENSION 30 ML CUP PO PRN (16:40)
[2019-02-02] MEDS ORDERED: ACETAMINOPHEN 325 MG TABLET (FP) PO PRN ×2 (16:40)
[2019-02-02] MEDS ORDERED: BISMUTH SUBSALICYLATE 524 MG/30 ML UD PO PRN (16:40)
[2019-02-02] MEDS ORDERED: MAG HYDROX/AL HYDROX/SIMETH 30 ML UNIT-DOSE CUP PO PRN (16:40)
[2019-02-02] MEDS ORDERED: hydrOXYzine PAMOATE 25 MG CAPSULE (FP) PO PRN (16:40)
[2019-02-02] MEDS ORDERED: cloNIDine HCL 0.1 MG TABLET PO PRN (17:19)
[2019-02-02] MEDS ORDERED: METHADONE HCL 10 MG TABLET (FOR DETOX USE ONLY) PO ONE (21:00)
[2019-02-02] MEDS: IBUPROFEN 400 MG TABLET (FP) PO PRN (21:25)
[2019-02-02] MEDS: THIAMINE HCL 100 MG TABLET (FP) PO SCH (21:26)
[2019-02-02] MEDS: MELATONIN 5 MG TABLETS PO PRN (21:27)
[2019-02-03] MEDS: BACITRACIN/POLYMYXIN B SULFATE 15 GM TUBE TP SCH ×3 (00:06→22:10)
[2019-02-03] MEDS: metFORMIN HCL 500 MG TABLET (FP) PO SCH ×2 (06:06→17:33)
[2019-02-03] MEDS: INSULIN SLIDING SCALE (NOVOLOG) 1 VIAL SQ SCH ×2 (06:08→16:36)
[2019-02-03] MEDS ORDERED: METHADONE HCL 5 MG TABLET (FOR DETOX USE ONLY) PO ONE (10:00)
[2019-02-03] MEDS ORDERED: HYDROCORTISONE 2.5% TOPICAL CREAM 30 GM TUBE TP SCH (10:00)
[2019-02-03 10:09] LABS: HEMATOCRIT 35.7 % (35.4-49); HEMOGLOBIN 11.7 GM/dL (11.7-16.9); MCHC 32.8 g/dl (32.0-35.9); MEAN CELL VOLUME 91.4 fl (80-96); MEAN PLT VOLUME 7.3 fl (7.5-11.1); PLATELET COUNT 390 K/MM3 (134-434); RBC 3.91 M/mm3 (4.00-5.60); RDW 14.8 % (11.9-15.9); WHITE BLOOD COUNT 5.3 K/mm3 (4.0-10.0)
[2019-02-03] MEDS: PRENATAL VITAMINS W/ FOLIC ACID TABLET (FP) PO SCH (10:20)
[2019-02-03 10:24] LABS: ALBUMIN 3.3 g/dl (3.4-5.0); BILIRUBIN,TOTAL 0.6 mg/dL (0.2-1); BLOOD UREA NITROGEN 12.4 mg/dL (7-18); CALCIUM 9.1 mg/dL (8.5-10.1); CREATININE 1.3 mg/dL (0.55-1.3); POTASSIUM 4.4 mmol/L (3.5-5.1); TOT PROT 6.8 g/dl (6.4-8.2)
--- NOTE | 2019-02-03 11:33 | EKG ---
Test Reason : Blood Pressure : / mmHG Vent. Rate : 076 BPM Atrial Rate : 076 BPM P-R Int : 144 ms QRS Dur : 090 ms QT Int : 396 ms P-R-T Axes : 030 045 048 degrees QTc Int : 445 ms NORMAL SINUS RHYTHM NONSPECIFIC T WAVE ABNORMALITY WHEN COMPARED WITH ECG OF 26-OCT-2016 16:42, NO SIGNIFICANT CHANGE WAS FOUND Confirmed by ZAMZAM SEXTON MD ([id number]) on 02/03/2019 11:33:38 AM Referred By: TAVO Confirmed By:ZAMZAM SEXTON MD
[2019-02-03] MEDS: CLINDAMYCIN HCL 600 MG PO SCH ×6 (12:29→22:10)
[2019-02-03] MEDS: CIPROFLOXACIN HCL 500 MG PO SCH ×3 (12:30→22:10)
[2019-02-03] MEDS: IBUPROFEN 400 MG TABLET (FP) PO PRN (12:31)
--- NOTE | 2019-02-03 14:36 | PN ---
S COWS - Scale Resting Pulse: 0= [place] 80 or Below Sweatin= Chills/Flushing Restless Observation: 1= Difficult to Sit Still Pupil Size: 0= Normal to Room Light Bone or Joint Aches: 2= Severe Diffuse Aches Runny Nose/ Eye Tearin= Runny Nose/Eyes GI Upset > 30mins: 0= None Tremor Observation of Outstretched Hands: 1= Tremor [place], Not Seen Yawning Observation: 2= >3x During Session Anxiety or Irritability: 2=Irritable/Anxious Goose Flesh Skin: 0=Smooth Skin COWS Score: 11 S Progress Note (SOAP) Subjective: c/o body aches, chills, sweats , interrupted sleep Objective: 02/03/19 14:30 Vital Signs Temperature 97.0 F L 02/03/19 09:23 Pulse Rate 77 02/03/19 13:47 Respiratory Rate 18 02/03/19 13:47 Blood Pressure 149/100 02/03/19 13:47 O2 Sat by Pulse Oximetry (%) Laboratory Last Values WBC 5.3 K/mm3 (4.0-10.0) 02/03/19 07:45 RBC 3.91 M/mm3 (4.00-5.60) L 02/03/19 07:45 Hgb 11.7 GM/dL (11.7-16.9) 02/03/19 07:45 Hct 35.7 % (35.4-49) 02/03/19 07:45 MCV 91.4 fl (80-96) 02/03/19 07:45 MCH 30.0 pg (25.7-33.7) 02/03/19 07:45 MCHC 32.8 g/dl (32.0-35.9) 02/03/19 07:45 RDW 14.8 % (11.9-15.9) 02/03/19 07:45 Plt Count 390 K/MM3 (134-434) 02/03/19 07:45 MPV 7.3 fl (7.5-11.1) L 02/03/19 07:45 Sodium 140 mmol/L (136-145) 02/03/19 07:45 Potassium 4.4 mmol/L (3.5-5.1) 02/03/19 07:45 Chloride 107 mmol/L (98-107) 02/03/19 07:45 Carbon Dioxide 28 mmol/L (21-32) 02/03/19 07:45 Anion Gap 5 MMOL/L (8-16) L 02/03/19 07:45 BUN 12.4 mg/dL (7-18) 02/03/19 07:45 Creatinine 1.3 mg/dL (0.55-1.3) 02/03/19 07:45 Est GFR (CKD-EPI)AfAm 70.69 02/03/19 07:45 Est GFR (CKD-EPI)NonAf 60.99 02/03/19 07:45 POC Glucometer 95 UNITS (80-120) 02/03/19 06:05 Random Glucose 117 mg/dL (74-106) H 02/03/19 07:45 Calcium 9.1 mg/dL (8.5-10.1) 02/03/19 07:45 Total Bilirubin 0.6 mg/dL (0.2-1) 02/03/19 07:45 AST 10 U/L (15-37) L 02/03/19 07:45 ALT 19 U/L (13-61) 02/03/19 07:45 Alkaline Phosphatase 84 U/L (45-117) 02/03/19 07:45 Total Protein 6.8 g/dl (6.4-8.2) 02/03/19 07:45 Albumin 3.3 g/dl (3.4-5.0) L 02/03/19 07:45 RPR Titer Nonreactive (NONREACTIVE) 02/03/19 07:45 Assessment: 02/03/19 14:33 Aox3 no acute distress lungs clear + LLE superficial wound no sign of cellulites and no drainage + bilateral no pitting edema bilateral lower extremities full ROM ambulating in the unit withdrawal sx Diabetic wound left medical calf Plan: continue detox patient was evaluated at the Ed prior to admission for diabetic wound LLE, continue wound orders continue to monitor
[2019-02-03] MEDS: THIAMINE HCL 100 MG TABLET (FP) PO SCH (22:10)
[2019-02-03] MEDS: MELATONIN 5 MG TABLETS PO PRN (22:11)
[2019-02-04] MEDS: metFORMIN HCL 500 MG TABLET (FP) PO SCH ×2 (07:05→17:48)
[2019-02-04] MEDS: INSULIN SLIDING SCALE (NOVOLOG) 1 VIAL SQ SCH ×2 (07:06→17:49)
[2019-02-04] MEDS ORDERED: METHADONE HCL 10 MG TABLET (FOR DETOX USE ONLY) PO ONE (10:00)
[2019-02-04] MEDS: CIPROFLOXACIN HCL 500 MG PO SCH ×2 (10:05→22:32)
[2019-02-04] MEDS: CLINDAMYCIN HCL 600 MG PO SCH ×4 (10:05→22:32)
[2019-02-04] MEDS: BACITRACIN/POLYMYXIN B SULFATE 15 GM TUBE TP SCH ×2 (10:07→23:32)
[2019-02-04] MEDS: PRENATAL VITAMINS W/ FOLIC ACID TABLET (FP) PO SCH (10:07)
--- NOTE | 2019-02-04 12:57 | PN ---
BHS COWS - Scale Resting Pulse: 0= [place] 80 or Below Sweatin= Beads of Sweat on Face Restless Observation: 1= Difficult to Sit Still Pupil Size: 0= Normal to Room Light Bone or Joint Aches: 2= Severe Diffuse Aches Runny Nose/ Eye Tearin= None GI Upset > 30mins: 0= None Tremor Observation of Outstretched Hands: 0= None Yawning Observation: 1= 1-2x During Session Anxiety or Irritability: 2=Irritable/Anxious Goose Flesh Skin: 0=Smooth Skin COWS Score: 9 S Progress Note (SOAP) Subjective: c/o sweats, anxiety, muscle aches, and irritability. Objective: 02/04/19 12:57 Vital Signs 02/04/19 02/04/19 06:54 09:26 Temperature 99 F 99 F Pulse Rate 69 86 Respiratory 18 18 Rate Blood Pressure 125/76 153/95 Laboratory Last Values WBC 5.3 K/mm3 (4.0-10.0) 02/03/19 07:45 RBC 3.91 M/mm3 (4.00-5.60) L 02/03/19 07:45 Hgb 11.7 GM/dL (11.7-16.9) 02/03/19 07:45 Hct 35.7 % (35.4-49) 02/03/19 07:45 MCV 91.4 fl (80-96) 02/03/19 07:45 MCH 30.0 pg (25.7-33.7) 02/03/19 07:45 MCHC 32.8 g/dl (32.0-35.9) 02/03/19 07:45 RDW 14.8 % (11.9-15.9) 02/03/19 07:45 Plt Count 390 K/MM3 (134-434) 02/03/19 07:45 MPV 7.3 fl (7.5-11.1) L 02/03/19 07:45 Sodium 140 mmol/L (136-145) 02/03/19 07:45 Potassium 4.4 mmol/L (3.5-5.1) 02/03/19 07:45 Chloride 107 mmol/L (98-107) 02/03/19 07:45 Carbon Dioxide 28 mmol/L (21-32) 02/03/19 07:45 Anion Gap 5 MMOL/L (8-16) L 02/03/19 07:45 BUN 12.4 mg/dL (7-18) 02/03/19 07:45 Creatinine 1.3 mg/dL (0.55-1.3) 02/03/19 07:45 Est GFR (CKD-EPI)AfAm 70.69 02/03/19 07:45 Est GFR (CKD-EPI)NonAf 60.99 02/03/19 07:45 POC Glucometer 119 UNITS (80-120) 02/04/19 05:41 Random Glucose 117 mg/dL (74-106) H 02/03/19 07:45 Calcium 9.1 mg/dL (8.5-10.1) 02/03/19 07:45 Total Bilirubin 0.6 mg/dL (0.2-1) 02/03/19 07:45 AST 10 U/L (15-37) L 02/03/19 07:45 ALT 19 U/L (13-61) 02/03/19 07:45 Alkaline Phosphatase 84 U/L (45-117) 02/03/19 07:45 Total Protein 6.8 g/dl (6.4-8.2) 02/03/19 07:45 Albumin 3.3 g/dl (3.4-5.0) L 02/03/19 07:45 RPR Titer Nonreactive (NONREACTIVE) 02/03/19 07:45 Labs noted. Assessment: 02/04/19 12:57 AOX3, in no acute respiratory distress. Full ROM, ambulating in the unit. Withdrawal symptoms. Plan: continue detox.
[2019-02-04] MEDS: THIAMINE HCL 100 MG TABLET (FP) PO SCH (22:32)
[2019-02-04] MEDS: MELATONIN 5 MG TABLETS PO PRN (22:33)
[2019-02-05] MEDS ORDERED: METHADONE HCL 5 MG TABLET (FOR DETOX USE ONLY) PO ONE (06:00)
[2019-02-05] MEDS: INSULIN SLIDING SCALE (NOVOLOG) 1 VIAL SQ SCH (07:57)
[2019-02-05] MEDS: metFORMIN HCL 500 MG TABLET (FP) PO SCH (07:57)
[2019-02-05 09:16] VITALS: BP 144/97; PULSE 87; TEMP 98.3
[2019-02-05] MEDS: PRENATAL VITAMINS W/ FOLIC ACID TABLET (FP) PO SCH (09:41)
[2019-02-05] MEDS: CLINDAMYCIN HCL 600 MG PO SCH (09:41)
[2019-02-05] MEDS: BACITRACIN/POLYMYXIN B SULFATE 15 GM TUBE TP SCH (09:41)
[2019-02-05] MEDS: CIPROFLOXACIN HCL 500 MG PO SCH (09:41)
--- NOTE | 2019-02-05 12:12 | DS ---
[facility] Detox Discharge Summary Admission Date: 02/02/19 Discharge Date: 02/05/19 - History Present History: Opioid Dependence Additional Comments: 58 years old male admitted on 02/02/19 for opiate withdrawal sx management treated with methadone detox regimen requests to be discharged today that feeling better today prefers to be discharged today that he will return to [facility] admission patient is alert oriented x 3 cardiac s1s2 regular rate rhythm respiratory clear lung bilaterally on auscultation skin warm and dry Pertinent Past History: discuss medication assisted treatment program and olive picker narcan from pharmacy - Physical Exam Results Vital Signs: Vital Signs Temperature 98.3 F 02/05/19 09:15 Pulse Rate 87 02/05/19 09:15 Respiratory Rate 19 02/05/19 09:15 Blood Pressure 144/97 02/05/19 09:15 O2 Sat by Pulse Oximetry (%) Pertinent Admission Physical Exam Findings: opiate withdrawal sx Laboratory Last Values WBC 5.3 K/mm3 (4.0-10.0) 02/03/19 07:45 RBC 3.91 M/mm3 (4.00-5.60) L 02/03/19 07:45 Hgb 11.7 GM/dL (11.7-16.9) 02/03/19 07:45 Hct 35.7 % (35.4-49) 02/03/19 07:45 MCV 91.4 fl (80-96) 02/03/19 07:45 MCH 30.0 pg (25.7-33.7) 02/03/19 07:45 MCHC 32.8 g/dl (32.0-35.9) 02/03/19 07:45 RDW 14.8 % (11.9-15.9) 02/03/19 07:45 Plt Count 390 K/MM3 (134-434) 02/03/19 07:45 MPV 7.3 fl (7.5-11.1) L 02/03/19 07:45 Sodium 140 mmol/L (136-145) 02/03/19 07:45 Potassium 4.4 mmol/L (3.5-5.1) 02/03/19 07:45 Chloride 107 mmol/L (98-107) 02/03/19 07:45 Carbon Dioxide 28 mmol/L (21-32) 02/03/19 07:45 Anion Gap 5 MMOL/L (8-16) L 02/03/19 07:45 BUN 12.4 mg/dL (7-18) 02/03/19 07:45 Creatinine 1.3 mg/dL (0.55-1.3) 02/03/19 07:45 Est GFR (CKD-EPI)AfAm 70.69 02/03/19 07:45 Est GFR (CKD-EPI)NonAf 60.99 02/03/19 07:45 POC Glucometer 110 UNITS (80-120) 02/05/19 05:56 Random Glucose 117 mg/dL (74-106) H 02/03/19 07:45 Calcium 9.1 mg/dL (8.5-10.1) 02/03/19 07:45 Total Bilirubin 0.6 mg/dL (0.2-1) 02/03/19 07:45 AST 10 U/L (15-37) L 02/03/19 07:45 ALT 19 U/L (13-61) 02/03/19 07:45 Alkaline Phosphatase 84 U/L (45-117) 02/03/19 07:45 Total Protein 6.8 g/dl (6.4-8.2) 02/03/19 07:45 Albumin 3.3 g/dl (3.4-5.0) L 02/03/19 07:45 RPR Titer Nonreactive (NONREACTIVE) 02/03/19 07:45 lab noted - Treatment Hospital Course: Detox Protocol Followed, Detoxed Safely, Responded well, Discharged Condition Good, Rehab Referral Accepted Patient has Accepted a Rehab Referral to: [facility] - Medication Discharge Medications: Ambulatory Orders Ciprofloxacin HCl 500 mg PO BID 7 Days #14 tablet 02/02/19 Clindamycin HCl 600 mg PO QID 7 Days #56 capsule 02/02/19 Metformin HCl [Glucophage] 500 mg PO BID 02/02/19 Naloxone HCl [Narcan] 4 mg NS ASDIR PRN #1 spray 02/05/19 - Diagnosis (1) Diabetes Current Visit: Yes Status: Chronic Qualifiers: Diabetes mellitus type: type 2 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 insulin use status Diabetes mellitus complication status : with skin complications Diabetes mellitus complication detail: with foot ulcer Qualified Code(s): E11.621 - Type 2 diabetes mellitus with foot ulcer; L97.509 - Non-pressure chronic ulcer of other part of unspecified foot with unspecified severity (2) Opioid dependence with withdrawal Current Visit: Yes Status: Acute (3) GERD (gastroesophageal reflux disease) Current Visit: Yes Status: Chronic Qualifiers: Esophagitis presence: without esophagitis Qualified Code(s): K21.9 - Gastro -esophageal reflux disease without esophagitis (4) Hypertension Current Visit: Yes Status: Chronic Qualifiers: Hypertension type: essential hypertension Qualified Code(s): I10 - Essential (primary) hypertension - AMA Did Patient Leave Against Medical Advice: No COWS (PN) - Opiate Withdrawal Resting Pulse: 1= [place] 81-100 Sweatin= Chills/Flushing Restless Observation: 0= Sits Still Pupil Size: 0= Normal to Room Light Bone or Joint Aches: 1= Mild Discomfort Runny Nose/ Eye Tearin= None GI Upset > 30mins: 0= None Tremor Observation of Outstretched Hands: 1= Tremor [place], Not Seen Yawning Observation: 0= None Anxiety or Irritability: 1=Feels Anxious/Irritable Goose Flesh Skin: 0=Smooth Skin COWS Score: 5
== END 2019-02-05 09:03 | disposition home or self-care (01) | DRG 773 ==
LOC: YASAS 10:12 → Y3N 17:17
PROVIDERS: ADMIT Allergy & Immunology; ATTEND Allergy & Immunology
PROC: HZ2ZZZZ Detoxification Services for Substance Abuse Treatment (ICD-10-PCS; principal; 2019-02-02)
DX: F11.23 Opioid dependence with withdrawal (principal); F10.230 Alcohol dependence with withdrawal, uncomplicated; I10 Essential (primary) hypertension; E11.621 Type 2 diabetes mellitus with foot ulcer; L97.509 Non-pressure chronic ulcer of other part of unspecified foot with unspecified severity; Z79.84 Long term (current) use of oral hypoglycemic drugs; K21.9 Gastro-esophageal reflux disease without esophagitis; R60.0 Localized edema
CPT/HCPCS: 36415; 80053; 82962; 85027; 86593; 93005; 93010

== ENCOUNTER 2019-02-02 12:53 | Emergency (ER) | payer OTHER ==
[2019-02-02 13:22] VITALS: BP 143/89; PULSE 74; TEMP 97.5; BMI 38.9
--- NOTE | 2019-02-02 13:53 | PDOC ---
History of Present Illness - General Chief Complaint: Wound Stated Complaint: Wound History Source: Patient Exam Limitations: No Limitations - History of Present Illness Initial Comments: 58 year old male with PMH HTN, HLD, NIDDM (compliant with metformin) sent to ED from [facility] for evaluation of LLE ulcer. Pt reported he has had the ulcer x"a few weeks" and he was seen at [facility] ED for it, placed on an antibiotic of unknown name which he is currently taking. He reported he did not want to take it 4 times a day, so he prolonged it over a longer period of time on his own. He reported he feels the wound has not increased in size, and has gotten a little bit better "but I dont think it is infected like it was before". Pt reported he was at [facility] for heroine (uses a "bundle" a day, used 5 bags today) . He denied ETOH use, cocaine use, benzo use, amphetamine use. He reported he quit smoking cigarettes a year ago. ROS General: denied fever, chills, generalized weakness. HEENT: denied sore throat, rhinorrhea, ear pain. Cardiovascular: denied chest pain, palpitations, syncope, diaphoresis. Respiratory: denied shortness of breath, cough, sputum production, hemoptysis. Gastrointestinal: denied abdominal pain, nausea, vomiting, diarrhea, constipation, blood in stool. Genitourinary: denied dysuria, increased urinary frequency, hematuria, urinary incontinence, flank pain. Back: denied back pain. Musculoskeletal: denied joint pain, muscle pain, joint swelling. Neurological: denied headache, dizziness, numbness, tingling, weakness. Integumentary: admitted to ulcer. denied laceration, abrasion. Hematologic/Lymphatic: denied bruising or bleeding. PE Constitutional: Well-nourished, Well-developed, appearing stated age. HEENT: head is normocephalic, atraumatic. EOMI. PERRLA. Neck: supple. Full ROM. Cardiovascular: regular heart rhythm. no murmurs. no pericardial friction rub. Respiratory: clear to auscultation bilaterally. no crackles, rhonchi or wheezing. no stridor. Gastrointestinal: soft, nontender. normal bowel sounds. no rebound, guarding, masses. Extremities: peripheral pulses intact. no lower extremity pitting edema. no wounds to heels bilaterally. no wound between toes bilaterally. LLE: 4x4 cm ulcer to left lower extremity inner aspect of area jut proximal to medial malleolus with mild surrounding cellulitis and mild warmth. 2+ DSP bilaterally. Neurological: CN 2-12 grossly intact. moves all four extremities. Psych: awake, alert, oriented x3. follows commands. answers questions appropriately. Past History - Past Medical History Allergies/Adverse Reactions: Allergies Allergy/AdvReac Type Severity Reaction Status Date / Time No Known Allergies Allergy Verified 02/02/19 13:22 Home Medications: Ambulatory Orders Ciprofloxacin HCl 500 mg PO BID 7 Days #14 tablet 02/02/19 Clindamycin HCl 600 mg PO QID 7 Days #56 capsule 02/02/19 Metformin HCl [Glucophage] 500 mg PO BID 02/02/19 - Psycho Social/Smoking Cessation Hx Smoking History: Former smoker Have you smoked in the past 12 months: No Number of Cigarettes Smoked Daily: 20 Cigars Per Day: 0 Information on smoking cessation initiated: No 'Breaking Loose' booklet given: 10/26/16 Hx Alcohol Use: No Drug/Substance Use Hx: No Substance Use Type: Alcohol, Heroin Hx Substance Use Treatment: Yes ([facility] 09/2016- heroin and alcohol) *Physical Exam - Vital Signs Last Vital Signs Temp Pulse Resp BP Pulse Ox 97.5 F L 74 18 143/89 100 02/02/19 13:19 02/02/19 13:19 02/02/19 13:19 02/02/19 13:19 02/02/19 13:19 Medical Decision Making - Medical Decision Making 58 year old male with above PMH sent to ED from [facility] for LLE diabetic ulcer , pt has been noncompliant with medication regimen, but wound has been improving and pt has no systemic symptoms. Initial Vital Signs Temp Pulse Resp BP Pulse Ox 97.5 F L 74 18 143/89 100 02/02/19 13:19 02/02/19 13:19 02/02/19 13:19 02/02/19 13:19 02/02/19 13:19 Afebrile. No tachycardia. No tachypnea. Mild hypertension. No hypoxia on room air. Labs ordered: none Imaging ordered: none Medications ordered: none Pt's outpatient pharmacy "[facility]" was called at [phone], reported he picked up on 01/10/19: -Ciprofloxacin 500 mg BID x7 days -Clindamycin 600 mg QID x7 days New prescriptions sent to [facility] per Admitting TAXICAB STARTER's request at [facility]. Pt stable for return to [facility] with proper antibiotic regimen. Discharge - Discharge Information Problems reviewed: Yes Clinical Impression/Diagnosis: Diabetic ulcer of left ankle, Noncompliance with medication regimen Condition: Stable Disposition: TRANSFER ACUTE CARE/OTHER HOSP - Admission No - Additional Discharge Information Prescriptions: Ciprofloxacin HCl 500 mg PO BID 7 Days #14 tablet Clindamycin HCl 600 mg PO QID 7 Days #56 capsule - Follow up/Referral Referrals: ON STAFF,NOT [Primary Care Provider] - - Patient Discharge Instructions Patient Printed Discharge Instructions: DI for Diabetic Foot Ulcer, How to Use Antibiotics Wisely Additional Instructions: Take the prescriptions as indicated on their labels. Do not take them any way other than how the label states. Follow up with your primary care doctor within 5 days regarding your Emergency Room visit. I have provided you with a referral for our clinic system should you need a new doctor. Return to the Emergency Department for increasing redness/swelling/pain, fever, vomiting, lightheadedness, chest pain, shortness of breath, vomiting, or any other new, worsening or concerning symptoms. Drink lots of water to stay hydrated. - Post Discharge Activity Work/Back to School Note: Back to Work
--- NOTE | 2019-02-02 14:02 | PDOC ---
Attending Attestation - Resident Resident Name: Estefania Wilcox - ED Attending Attestation I have performed the following: I have examined & evaluated the patient, The case was reviewed & discussed with the resident, I agree w/resident's findings & plan, Exceptions are as noted - HPI HPI: 02/02/19 14:00 58yo M hx NIDDM, HTN, active inhalational heroine use (used 1/2 bundle today), etoh abuse presents from [facility] for evaluation of LLE wound. Pt was treated at [facility] with clindamycin and cipro on 01/10, states he is still taking the clindamycin. He states since he started the abx, the wound has improved and the redness has decreased but he does admit to stretching out his clindamycin dose from QID to daily/BID. He states it is too difficult to take a medication 4 times per day. He has completed the cipro. Does not inject into the wound or elsewhere. He denies DC from the wound. Denies fevers, chills, N/V/D. Denies headache, weakness/numbness, CP, SOB, dizziness, abd pain. - Physicial Exam PE: 02/02/19 14:31 GENERAL: Awake, alert, and fully oriented, in no acute distress HEAD: No signs of trauma EYES: PERRLA, EOMI, sclera anicteric, conjunctiva clear ENT: Nares patent, oropharynx clear without exudates. Moist mucosa NECK: Normal ROM, supple, no lymphadenopathy, JVD, or masses LUNGS: Breath sounds equal, clear to auscultation bilaterally. No wheezes, and no crackles HEART: Regular rate and rhythm, normal S1 and S2, no murmurs, rubs or gallops ABDOMEN: Soft, nontender, normoactive bowel sounds. No guarding, no rebound. No masses EXTREMITIES: Normal range of motion, trace b/l non pitting edema - symmetric. No clubbing or cyanosis. No cords. L medial distal calf with dry 6x6, flat superficial ulcer with mild surround erythema, ttp, and warmth. No discharge. NEUROLOGICAL: Normal speech, cranial nerves intact, equal strength and sesnation b/l. Antalgic but steady gait SKIN: noted above - Medical Decision Making 02/02/19 14:33 58-year-old male presents to the emergency department from [facility] for evaluation of diabetic foot wound to the left medial calf. Patient reporting improvement in the wound since he has been taking clindamycin , and completed Cipro, even though he has been taking the clindamycin less frequently than prescribed. He has no systemic signs of infection. He is well- appearing otherwise. Plan will be to prescribe course of clindamycin for patient to take as prescribed 4 times a day (called pharmacy to confirm prescribed doses) as well as complete course of ciprofloxacin. Patient is clinically stable for discharge back to [facility] for outpatient antibiotic course, as well as for detox. I discussed the physical exam findings, ancillary test results and final diagnoses with the patient. I answered all of the patient's questions. The patient was satisfied with the care received and felt comfortable with the discharge plan and treatment plan. The patient will call their primary care physician within 24 hours to arrange follow-up and will return to the Emergency Department with any new, persistent or worsening symptoms.
== END 2019-02-02 14:45 | disposition short-term general hospital (02) ==
LOC: JER 12:53
DX: E11.621 Type 2 diabetes mellitus with foot ulcer (principal); I10 Essential (primary) hypertension; Z87.891 Personal history of nicotine dependence; E78.5 Hyperlipidemia, unspecified
CPT/HCPCS: 99281-25